=== PATIENT | female | born 1970 | race Caucasian/White ===

== ENCOUNTER 2024-01-18 08:58 | Inpatient (IN) | payer OTHER ==
[~2024-01-18] VITALS: Ht 152.4 cm; Wt 84.4 kg
[~2024-01-18 08:58] MED LIST: CIPRO500 MG PO; VICODIN 500 MG-1 TAB PO; ZOFRAN ODT8 MG PO
[2024-01-18 09:27] VITALS: BP 154/82
[2024-01-18] MEDS ORDERED: COQ-10100 MG PO (09:28)
[2024-01-18] MEDS ORDERED: PROBIOTIC-PREB1 EACH PO (09:28)
[2024-01-18] MEDS ORDERED: B12 ACTIVE1000 MCG PO (09:29)
[2024-01-18] MEDS ORDERED: Acetaminophen/Oxycodone 5 MG/325 MG TABLET PO ONE (10:05)
[2024-01-18] MEDS ORDERED: MORPHINE Sulfate 2 MG/ML SYR IV ONE (12:10)
[2024-01-18] MEDS ORDERED: Midazolam Hydrochloride 2 MG/2 ML VIAL IV ONE (12:30)
[2024-01-18 12:34] VITALS: BP 132/71
[2024-01-18] MEDS ORDERED: BISACODYL 5 MG TAB PO PRN (14:05)
[2024-01-18] MEDS ORDERED: TEMAZEPAM 15 MG CAP PO PRN (14:05)
[2024-01-18] MEDS ORDERED: ACETAMINOPHEN 650 MG SUPP R PRN (14:05)
[2024-01-18] MEDS ORDERED: ACETAMINOPHEN 325 MG TAB PO PRN (14:05)
[2024-01-18] MEDS ORDERED: Ondansetron Hydrochloride 4 MG/2 ML VIAL IV PRN (14:05)
[2024-01-18] MEDS ORDERED: MORPHINE Sulfate 2 MG/ML SYR IV PRN (14:05)
[2024-01-18] MEDS ORDERED: Acetaminophen/Hydrocodone 5 MG/325 MG TABLET PO PRN (14:05)
[2024-01-18 18:06] VITALS: BP 145/74
[2024-01-18 18:20] VITALS: BP 147/71
[2024-01-18 18:22] VITALS: BP 147/71
[2024-01-18 20:00] VITALS: BP 169/63
[2024-01-19] VITALS (10 sets, daily range): BP systolic 121–148; BP diastolic 55–83
[2024-01-19] MEDS ORDERED: Pantoprazole Sodium 40 MG TAB PO SCH (06:00)
[2024-01-19 06:56] LABS: BASO % 0.2 % (0.0-1.0); EOS # 0.1 10*3/uL (0.0-0.4); EOS % 0.7 % (1.0-4.0); HEMATOCRIT 38.3 % (37.0-47.0); LYMPH % 29.3 % (27.0-41.0); MEAN CORPUSCULAR HGB 29.7 pg (27.0-31.0); MEAN CORPUSCULAR HGB CONC 33.7 g/dl (33.0-37.0); MEAN PLATELET VOLUME 9.7 fl (9.6-12.3); MONO % 9.7 % (3.0-9.0); NEUT # 6.1 10*3/uL (2.3-7.9); NEUT % 59.7 % (47.0-73.0); PLATELET COUNT AUTOMATED 349 10*3/uL (130-400); RED BLOOD COUNT 4.35 10*6/uL (4.10-5.10); RED CELL DISTRI WIDTH 13.5 % (0-14.5); WHITE BLOOD COUNT 10.3 10*3/uL (4.8-10.8)
[2024-01-19 08:10] LABS: ALKALINE PHOSPHATASE 68 U/L (46-116); BUN 7 mg/dl (9-23); CHLORIDE 104 mmol/L (98-107); CHOLESTEROL 138 mg/dL (<200); FREE T4 1.17 ng/dl (0.89-1.76); LDL CHOLESTEROL 77 mg/dL (9-159); POTASSIUM 3.7 mmol/L (3.4-5.1); SGPT/ALT 12 U/L (5-49); TOTAL PROTEIN 6.8 gm/dL (6.0-8.0); TRIGLYCERIDES 100 mg/dl (<150)
[2024-01-19] MEDS ORDERED: Cholecalciferol 2,000 UNIT TABLET (50 MCG) PO SCH (10:00)
[2024-01-19] MEDS ORDERED: CALCIUM (TUMS) 500MG PO SCH (10:00)
[2024-01-19] MEDS ORDERED: Lactated Ringer's Solution 1,000 ML IV ONE ×3 (12:55→16:28)
[2024-01-19] MEDS ORDERED: TRANEXAMIC ACID IN NACL,ISO-OS 100 ML IV ONE ×2 (13:08→14:00)
[2024-01-19] MEDS ORDERED: ceFAZolin sodium/sodium chlor 20 ML IV ONE (13:08)
[2024-01-19] MEDS ORDERED: ACETAMINOPHEN 100 ML IV ONE (13:15)
[2024-01-19] MEDS ORDERED: Ropivacaine Hydrochloride 5 MG/ML 20 ML AMP IJ ONE (13:15)
[2024-01-19] MEDS ORDERED: Lidocaine Hydrochloride 2% 5 ML SDV IM ONE (18:40)
[2024-01-19] MEDS ORDERED: PROPOFOL 200 MG/20 ML VIAL IV ONE (18:40)
[2024-01-19] MEDS ORDERED: Dexamethasone Sodium Phospha 4 MG/ML VIAL IV ONE (18:40)
[2024-01-19] MEDS ORDERED: Midazolam Hydrochloride 2 MG/2 ML VIAL IV ONE (18:40)
[2024-01-19] MEDS ORDERED: ceFAZolin sodium 1 GM in SYRINGE INFUSION 10 ML IV SCH (22:00)
[2024-01-20] VITALS (7 sets, daily range): BP systolic 137–167; BP diastolic 70–88
[2024-01-20 06:34] LABS: BASO % 0.1 % (0.0-1.0); HEMATOCRIT 40.7 % (37.0-47.0); LYMPH # 1.5 10*3/uL (1.3-4.4); MEAN CORPUSCULAR HGB 29.2 pg (27.0-31.0); MEAN CORPUSCULAR HGB CONC 33.9 g/dl (33.0-37.0); MEAN PLATELET VOLUME 10.2 fl (9.6-12.3); MONO # 1.1 10*3/uL (0.1-1.0); MONO % 7.3 % (3.0-9.0); NEUT # 12.1 10*3/uL (2.3-7.9); NEUT % 82.1 % (47.0-73.0); PLATELET COUNT AUTOMATED 363 10*3/uL (130-400); RED BLOOD COUNT 4.73 10*6/uL (4.10-5.10); RED CELL DISTRI WIDTH 13.2 % (0-14.5); WHITE BLOOD COUNT 14.8 10*3/uL (4.8-10.8)
[2024-01-20] MEDS ORDERED: ceFAZolin sodium/sodium chlor 10 ML IV ONE ×2 (10:50→10:54)
[2024-01-20] MEDS ORDERED: Lactated Ringer's Solution 1,000 ML IV ONE (10:50)
[2024-01-20] MEDS ORDERED: Ropivacaine Hydrochloride 5 MG/ML 20 ML AMP IJ ONE (13:42)
[2024-01-20] MEDS ORDERED: ceFAZolin sodium/sodium chlor 20 ML IV ONE (14:00)
[2024-01-20] MEDS ORDERED: PROPOFOL 200 MG/20 ML VIAL IV ONE (14:54)
[2024-01-20] MEDS ORDERED: Ondansetron Hydrochloride 4 MG/2 ML VIAL IV ONE (14:54)
[2024-01-20] MEDS ORDERED: ROCURONIUM BROMIDE 50 MG/5 ML SYRINGE IV ONE (14:54)
[2024-01-20] MEDS ORDERED: Midazolam Hydrochloride 2 MG/2 ML VIAL IV ONE (14:54)
[2024-01-20] MEDS ORDERED: SUGAMMADEX SODIUM 200 MG/2 ML VIAL IV ONE (14:54)
[2024-01-20] MEDS ORDERED: fentaNYL CITRATE 100 MCG/2 ML VIAL IV ONE (14:54)
[2024-01-20] MEDS ORDERED: Ketorolac Tromethamine 30 MG/ML VIAL IV ONE (14:54)
[2024-01-20] MEDS ORDERED: Dexamethasone Sodium Phospha 4 MG/ML VIAL IV ONE (14:54)
[2024-01-20] MEDS ORDERED: Ondansetron4 MG PO (16:57)
[2024-01-20] MEDS ORDERED: HYDROCODONE-AC1 EAC1 PO (16:57)
[2024-01-21] MEDS ORDERED: ceFAZolin sodium/sodium chlor 10 ML IV ONE (11:00)
== END 2024-01-20 17:50 | disposition home or self-care (01) | DRG 506 ==
LOC: ED 08:58 → EDHOLD 13:51 → 4E 13:51 → EDHOLD 14:56 → 4E 18:18
PROVIDERS: Student in an Organized Health Care Education/Training Program; ADMIT Internal Medicine; ATTEND Internal Medicine
PROC: 2W3BX1Z Immobilization of Left Upper Arm using Splint (ICD-10-PCS; 2024-01-18)
PROC: 0PSJXZZ Reposition Left Radius, External Approach (ICD-10-PCS; 2024-01-18)
PROC: 0PSL04Z Reposition Left Ulna with Internal Fixation Device, Open Approach (ICD-10-PCS; principal; 2024-01-19)
PROC: 3E0T3BZ Introduction of Anesthetic Agent into Peripheral Nerves and Plexi, Percutaneous Approach (ICD-10-PCS; 2024-01-19)
PROC: 0PRJ0JZ Replacement of Left Radius with Synthetic Substitute, Open Approach (ICD-10-PCS; 2024-01-19)
PROC: 0PSJ04Z Reposition Left Radius with Internal Fixation Device, Open Approach (ICD-10-PCS; 2024-01-20)
PROC: 0RCP0ZZ Extirpation of Matter from Left Wrist Joint, Open Approach (ICD-10-PCS; 2024-01-20)
PROC: 3E0T3BZ Introduction of Anesthetic Agent into Peripheral Nerves and Plexi, Percutaneous Approach (ICD-10-PCS; 2024-01-20)
DX: S52.022A Displaced fracture of olecranon process without intraarticular extension of left ulna, initial encounter for closed fracture (principal); M96 Intraoperative and postprocedural complications and disorders of musculoskeletal system, not elsewhere classified; K21.9 Gastro-esophageal reflux disease without esophagitis; C50.912 Malignant neoplasm of unspecified site of left female breast; S52.272A Monteggia's fracture of left ulna, initial encounter for closed fracture; S52.122A Displaced fracture of head of left radius, initial encounter for closed fracture; M85.80 Other specified disorders of bone density and structure, unspecified site; Z90.12 Acquired absence of left breast and nipple; Z98.890 Other specified postprocedural states; Z88.8 Allergy status to other drugs, medicaments and biological substances; Z90.49 Acquired absence of other specified parts of digestive tract; Z80.1 Family history of malignant neoplasm of trachea, bronchus and lung; W18.30XA Fall on same level, unspecified, initial encounter; Y93.89 Activity, other specified; Y92.89 Other specified places as the place of occurrence of the external cause; Y99.8 Other external cause status; Y83.8 Other surgical procedures as the cause of abnormal reaction of the patient, or of later complication, without mention of misadventure at the time of the procedure; Y82.8 Other medical devices associated with adverse incidents

== ENCOUNTER → 2024-02-04 | Outpatient (CLI) | payer OTHER ==
[~2024-02-04] MED LIST changes: +B12 ACTIVE1000 MCG PO; +COQ-10100 MG PO; +HYDROCODONE-AC1 EAC1 PO; +Ondansetron4 MG PO; +PROBIOTIC-PREB1 EACH PO
== END | disposition home or self-care (01) ==
LOC: ORTHO 14:00
PROVIDERS: ATTEND Orthopaedic Surgery
DX: S52.022A Displaced fracture of olecranon process without intraarticular extension of left ulna, initial encounter for closed fracture (principal); X58.XXXA Exposure to other specified factors, initial encounter; Y93.89 Activity, other specified; Y92.89 Other specified places as the place of occurrence of the external cause; Y99.8 Other external cause status

== ENCOUNTER → 2024-02-11 | Outpatient (CLI) | payer OTHER | END | disposition home or self-care (01) | LOC: ORTHO 03:05 | PROVIDERS: ATTEND Orthopaedic Surgery | DX: S52.022D Displaced fracture of olecranon process without intraarticular extension of left ulna, subsequent encounter for closed fracture with routine healing (principal); X58.XXXD Exposure to other specified factors, subsequent encounter ==

== ENCOUNTER → 2024-03-03 | Outpatient (CLI) | payer OTHER | END | disposition home or self-care (01) | LOC: ORTHO 03:48 | PROVIDERS: ATTEND Orthopaedic Surgery | DX: S52.022A Displaced fracture of olecranon process without intraarticular extension of left ulna, initial encounter for closed fracture (principal); X58.XXXA Exposure to other specified factors, initial encounter; Y93.89 Activity, other specified; Y92.89 Other specified places as the place of occurrence of the external cause; Y99.8 Other external cause status ==

== ENCOUNTER → 2024-03-15 | Outpatient (CLI) | payer OTHER | END | disposition home or self-care (01) | LOC: RAD 02:40 | PROVIDERS: ATTEND Orthopaedic Surgery | DX: M81.0 Age-related osteoporosis without current pathological fracture (principal) ==

== ENCOUNTER → 2024-06-16 | Outpatient (CLI) | payer OTHER | END | disposition home or self-care (01) | LOC: ORTHO 01:43 | PROVIDERS: ATTEND Orthopaedic Surgery | DX: S52.022A Displaced fracture of olecranon process without intraarticular extension of left ulna, initial encounter for closed fracture (principal); M19.022 Primary osteoarthritis, left elbow; M25.422 Effusion, left elbow; M79.89 Other specified soft tissue disorders; X58.XXXA Exposure to other specified factors, initial encounter; Y93.89 Activity, other specified; Y92.89 Other specified places as the place of occurrence of the external cause; Y99.8 Other external cause status ==

== ENCOUNTER → 2025-01-21 | Outpatient (CLI) | payer OTHER | END | disposition home or self-care (01) | LOC: ORTHO 00:13 | PROVIDERS: ATTEND Orthopaedic Surgery | DX: S52.022A Displaced fracture of olecranon process without intraarticular extension of left ulna, initial encounter for closed fracture (principal); M19.022 Primary osteoarthritis, left elbow; X58.XXXA Exposure to other specified factors, initial encounter; Y93.89 Activity, other specified; Y92.89 Other specified places as the place of occurrence of the external cause; Y99.8 Other external cause status ==